=== PATIENT | female | born 1975 | race Caucasian/White ===

== ENCOUNTER 2017-03-06 16:19 | Emergency (ER) | payer BC, SELFPAY | END 2017-03-06 17:34 | disposition home or self-care (01) | PROVIDERS: Emergency Provider Nurse Practitioner Family; Family Provider Family Medicine; Visit Provider Nurse Practitioner Family | DX: J10.1 Influenza due to other identified influenza virus with other respiratory manifestations (principal); F17.210 Nicotine dependence, cigarettes, uncomplicated; Z87.442 Personal history of urinary calculi; Z88.5 Allergy status to narcotic agent; Z88.0 Allergy status to penicillin; Z88.2 Allergy status to sulfonamides; Z88.8 Allergy status to other drugs, medicaments and biological substances | CPT/HCPCS: 87804; 87880; 99201 ==

== ENCOUNTER 2017-03-08 10:14 | Outpatient (CLI) | payer BC, SELFPAY | END 2017-03-08 12:45 | disposition home or self-care (01) | PROVIDERS: Family Provider Family Medicine; Visit Provider Nurse Practitioner | DX: J11.1 Influenza due to unidentified influenza virus with other respiratory manifestations (principal); R50.9 Fever, unspecified; R05 Cough | CPT/HCPCS: 96360 ==

== ENCOUNTER → 2017-09-15 09:55 | Outpatient (CLI) | payer BC, SELFPAY ==
--- NOTE | 2017-09-15 10:07 | MM_ITS ---
MM Dig screening mamm BI w/CAD CAD Screening COMPARISON: None, this is baseline INDICATION: There is no personal or family history of breast cancer. 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 For symmetrical appearance. TECHNIQUE: Standard CC and MLO images were obtained. R2 CAD reviewed. FINDINGS: Prominent diffuse heterogenic fibroglandular densities are seen in both breasts. A small implant is seen deep within the right breast which shows no evidence of leakage. Or significant deformity. There is no suspicious lesion in either breast and there are no suspicious microcalcifications. IMPRESSION: Moderately and diffusely dense parenchymal pattern with no suspicious lesion seen BI-RADS Category: 2 Benign Finding(s) RECOMMENDED FOLLOW-UP: 1YR - 1 YEAR FOLLOW-UP (A letter has been sent to the patient regarding results of the study.)
[2017-09-15 10:16] LABS: Basophils % 0.6 % (0.1-2.0); Eosinophils # 0.1 K/mm3 (0.0-0.4); Eosinophils % 2.5 % (0.1-12.0); Hematocrit 45.7 % (37.0-47.0); Hemoglobin 14.8 g/dL (12.2-16.2); Lymphocytes # 1.9 K/mm3 (0.7-4.5); Lymphocytes % 34.3 K/mm3 (10-50); Mean Corpuscular HGB Conc 32.3 g/dL (31.8-35.4); Mean Corpuscular Hemoglobin 29.2 pg (27.0-31.2); Mean Corpuscular Volume 90.4 fl (81-99); Mean Platelet Volume 7.1 fl (7.4-10.4); Monocytes # 0.4 K/mm3 (0.1-1.0); Monocytes % 7.5 % (1.7-9.3); Neutrophils # 3.1 K/mm3 (1.8-7.8); Platelet Count 309 K/mm3 (142-424); Red Blood Count 5.06 M/mm3 (4.20-5.40); White Blood Count 5.6 K/mm3 (4.8-10.8)
[2017-09-15 11:35] LABS: Alanine Aminotransferase 16 U/L (12-78); Albumin/Globulin Ratio 1.2 (1.1-1.8); Alkaline Phosphatase 59 U/L (46-116); Anion Gap 12.3 mEq/L (5-15); Aspartate Amino Transferase 13 U/L (15-37); Bilirubin,Total 1.3 mg/dL (0.2-1.0); Blood Urea Nitrogen 13 mg/dL (7-18); Calcium 8.9 mg/dL (8.5-10.1); Carbon Dioxide 27 mmol/L (21.0-32.0); Chloride 106 mmol/L (98-107); Chol/HDL Ratio 2.3 (1-3.5); Cholesterol 167 mg/dL (140-200); Creatinine,Serum 0.57 mg/dL (0.55-1.02); Estimated Glomerular Filt Rate 117 ml/min (>60); GFR (African American) 142 ML/MIN (>60); Globulin 3.3 gm/dl (1.3-3.2); Glucose 94 mg/dL (74-106); HDL Cholesterol 72 mg/dL (29-89); LDL Cholesterol 88 mg/dL (0-130); Potassium 4.3 mmoL/L (3.5-5.1); Sodium 141 mmol/L (136-145); Total Protein,Serum 7.3 gm/dL (6.4-8.2); Triglycerides 33 mg/dL (30-200); VLDL Cholesterol 7 mg/dL (0-40)
== END ==
PROVIDERS: Family Provider Family Medicine; PCP Nurse Practitioner Family; Visit Provider Nurse Practitioner Obstetrics & Gynecology
DX: Z12.31 Encounter for screening mammogram for malignant neoplasm of breast (principal); Z01.419 Encounter for gynecological examination (general) (routine) without abnormal findings
CPT/HCPCS: 36415; 77067; 80053; 80061; 85025

== ENCOUNTER → 2018-10-18 15:51 | Outpatient (CLI) | payer BC, SELFPAY ==
--- NOTE | 2018-10-18 15:56 | XR_ITS ---
XR chest 2V HISTORY: ITS.REASON: COUGH, HX OF PNEUMONIA ORDERING PHYSICIAN: Aurea Danielson APRN PATIENT AGE: 42 years COMPARISON: None FINDINGS: The cardiomediastinal silhouette and pulmonary vascularity are within normal limits. The lungs are clear without infiltrates, suspicious nodules, or pleural effusions. Mild thoracic scoliosis convex right. Old granulomatous disease. There is some minimal pleural thickening in the right upper chest laterally nonspecific. Right breast implant noted IMPRESSION: No acute finding Minimal pleural thickening right upper chest laterally nonspecific. Stability may be confirmed with follow-up
--- NOTE | 2018-10-18 15:57 | XR_ITS ---
XR shoulder RT min 2V HISTORY: ITS.REASON: SHOULDER PAIN, NO INJURY ORDERING PHYSICIAN: Aurea Danielson APRN PATIENT AGE: 42 years Comparison: None FINDINGS: No fracture or dislocation. No lytic or blastic change. There is normal mineralization. The joint spaces are well-preserved. No significant degenerative/arthritic changes. No erosive changes evident. There is some mild pleural thickening in the right upper lung zone laterally with questionable old right third rib fracture. IMPRESSION: No acute finding. Suspect old right third rib fracture with mild pleural thickening
== END ==
PROVIDERS: PCP Nurse Practitioner; Visit Provider Nurse Practitioner Family
DX: R05 Cough (principal)
CPT/HCPCS: 71046; 73030

== ENCOUNTER → 2019-10-09 09:41 | Outpatient (CLI) | payer BC, SELFPAY ==
--- NOTE | 2019-10-09 10:12 | US_ITS ---
PROCEDURE: US THYROID CLINICAL INDICATION: THYROID NODULE FOLLOW UP Follow-up nodule COMPARISON: 11/13/2015 FINDINGS: Right lobe: 3.9 x 1.6 x 2.1 cm. 7 x 3 mm stable solid nodule upper pole, stable 1.8 x 1.4 cm solid nodule with lobularity anteriorly and a cystic component laterally. 5 mm solid-appearing nodule lower pole Left lobe: 4.4 x 1.4 x 1.2 cm. 5 mm solid-appearing nodule upper pole stable. 5 mm cystic nodule mid polar region. 7 mm cystic nodule mid polar region Isthmus: Unremarkable Additional findings: IMPRESSION: Overall no change in the multiple thyroid nodules and cysts Dictated by: Vishnu Stark MD 10/09/2019 15:11 Electronically signed by Vishnu Stark MD in [place] 10/09/2019 15:11
== END ==
LOC: RAD 09:42
PROVIDERS: PCP Family Medicine; Visit Provider Nurse Practitioner
DX: E04.2 Nontoxic multinodular goiter (principal); R53.82 Chronic fatigue, unspecified
CPT/HCPCS: 76536

== ENCOUNTER 2020-02-22 12:08 | Emergency (ER) | payer BC, SELFPAY ==
[2020-02-22 12:30] VITALS: BP 115/52; PULSE 84; RESP 21; TEMP 37.1; O2SAT 99; BMI 22.3
--- NOTE | 2020-02-22 12:46 | HMH.EDUTC ---
[facility] Disposition Clinical Impression: UTI (urinary tract infection) Qualifiers: Urinary tract infection type: acute cystitis Hematuria presence: with hematuria Qualified Code(s): N30.01 - Acute cystitis with hematuria Disposition: Home, Self-Care Condition on Discharge: Good Instructions: DI for Urinary Tract Infection (UTI) Additional Instructions: retrun if symptoms worsen follow up with pcp for culture result Referrals: Thelma Pace APRN [Primary Care Provider] - Time of Disposition: 12:54 Medical Decision Making - Alex Inquiry Pt receiving controlled substance: No Vital Signs: 02/22/20 12:30 Temperature 98.7 F Temperature Source Oral Pulse Rate [Right Brachial] 84 Respiratory Rate 21 Blood Pressure [Right Arm] 115/52 L Blood Pressure Mean [Right Arm] 73 Blood Pressure Source [Right Arm] Automatic Cuff Blood Pressure Position [Right Arm] Sitting 02 Sat by Pulse Oximetry 99 Oxygen Delivery Method Room Air [facility] HPI - General Chief complaint: Urgent Treatment Center Stated complaint: possible UTI Time Seen by Provider: 02/22/20 12:46 Mode of Arrival: Ambulatory Source of Information: Patient Limitations: No Limitations Description of Symptoms (Recalled from Triage Doc. by RN): PATIENT C/O BURING WITH URINATION X 2 DAYS HEENT Symptoms (Recalled from RN notes): No Resp Symptoms (Recalled from RN notes): No Skin Symptoms (Recalled from RN notes): No MS Symptoms (Recalled from RN notes): No Functional Status (Recalled from RN notes): WNL - History of Present Illness Provider Complaint: 44 yr old female presents for burning and freq that started yesterday. pt states only antibiotic that helps is microbid. - Related Data Home Medications Medication Instructions Recorded Confirmed Citalopram Hydrobromide 40 mg PO DAILY 04/03/18 04/06/18 [Citalopram 40mg Tablet] Rizatriptan Benzoate [Maxalt] 10 mg PO DAILY PRN 04/03/18 04/06/18 Previous Rx's Medication Instructions Recorded Azithromycin [Z-Mark 250mg Tab*] 250 mg PO UD DOSE PK #6 tab 04/03/18 fluconazole 150 mg tablet 150 mg PO Q3D 0 Days #14 tab 11/23/18 Allergies Allergy/AdvReac Type Severity Reaction Status Date / Time acetaminophen [ACETAMINOPHEN] Allergy Unknown Verified 04/06/18 10:27 oxycodone [OXYCODONE] Allergy Unknown Verified 04/06/18 10:27 penicillin V [PENICILLIN V] Allergy Unknown Verified 04/06/18 10:27 Penicillins [PENICILLINS] Allergy Unknown Verified 04/06/18 10:27 Sulfa (Sulfonamide Allergy Unknown Verified 04/06/18 10:27 Antibiotics) [SULFA (SULFONAMIDE ANTIBIOTICS)] sulfamethoxazole Allergy Unknown Verified 04/06/18 10:27 [SULFAMETHOXAZOLE] trimethoprim [TRIMETHOPRIM] Allergy Unknown Verified 04/06/18 10:27 - Worker's Comp Is this a Worker's Comp case?: No [facility] History - Hepatitis A Screen Drug use history?: No High risk sexual behaviors?: No History of sexually transmitted infection?: No Currently employed?: No Childcare worker?: No Do you have indoor plumbing?: Yes Do you have electricity?: Yes Attestation statement:: This patient has been screened for Hepatitis A risk factors. I have reviewed the patient's past medical history: Yes Medical History: Reports:: Kidney Stones, Migraine Denies:: Cancer, Diabetes Mellitus Type 1, Diabetes Mellitus Type 2, MRSA Other Medical History: Reports: Other Comment: scoliosis- moderate to severe Other Surgeries: Yes: Tubal Ligation Amputation: No Fractures: No Comment: (Rt) Breast Implant 1996. Kidney Stone 2003 - Social History Smoking Status: Never smoker Alcohol Intake: never Alcohol Intake Frequency:: holidays/special occasions only Substance Use Type: denies use Occupational Status: other Family Hx:: Hypertension Comment: Arthritis BAKER PASTRY history: Spontaneous ROS Obtained: Yes Systems reviewed as appropriate & no additional complaints - Constitutional Constitutional: Reports system reviewed and
[2020-02-22 12:48] LABS: Apearance,Urine Clear (Clear); Color,Urine Yellow (Yellow); Glucose,Urine (UA) Negative (Negative); Ketones,Urine Negative (Negative); Protein,Urine Negative (Negative); Specific Gravity, Urine 1.015 (1.005-1.030)
[2020-02-22 12:49] LABS: Bilirubin,Urine Negative (Negative); Blood, Urine Trace (Negative); UTC Leukocyte Esterase,Urine Trace (Negative); UTC Nitrate,Urine Negative (Negative); Urobilinogen,Urine 0.2 EU/dl (0.2)
[2020-02-22 13:01] VITALS: BP 115/52; PULSE 4; RESP 21; TEMP 37.1; O2SAT 99
== END 2020-02-22 13:04 | disposition home or self-care (01) ==
PROVIDERS: Emergency Provider Nurse Practitioner Family; PCP Nurse Practitioner
DX: N30.01 Acute cystitis with hematuria (principal); Z87.442 Personal history of urinary calculi; Z88.0 Allergy status to penicillin; Z88.2 Allergy status to sulfonamides
CPT/HCPCS: 81003; 87086; 87088; 87186; 99201

== ENCOUNTER 2021-03-21 11:57 | Emergency (ER) | payer BC, SELFPAY ==
[2021-03-21 13:50] VITALS: BP 0/0; PULSE 0; RESP 0; TEMP -17.7; TEMP 0
== END 2021-03-21 13:51 | disposition left against medical advice (07) ==
LOC: UTC 11:59
PROVIDERS: Emergency Provider Nurse Practitioner Family; PCP Family Medicine
DX: Z53.21 Procedure and treatment not carried out due to patient leaving prior to being seen by health care provider (principal)

== ENCOUNTER → 2021-03-21 12:16 | Outpatient (CLI) | payer BC, SELFPAY | PROVIDERS: Visit Provider Nurse Practitioner Family | DX: N39.0 Urinary tract infection, site not specified (principal) ==

== ENCOUNTER → 2021-03-29 10:46 | Outpatient (CLI) | payer BC, SELFPAY ==
--- NOTE | 2021-03-29 10:51 | XR_ITS ---
FINAL REPORT CLINICAL HISTORY: RT FLANK PAIN,RENAL CALCULUS FINDINGS: SINGLE VIEW ABDOMEN A single view of the abdomen was obtained. There is a nonobstructive bowel gas pattern. There are no abnormally dilated loops of small bowel. Moderate stool seen throughout the colon. There are postoperative changes noted of the pelvis. No abnormal calcifications are identified. There is levoscoliosis. IMPRESSION: Nonobstructive bowel gas pattern. No definite renal stone. Reviewed, Interpreted and Dictated by Martín Lan III, MD Transcribed by Anju Boles Authenticated by Martín Lan III, MD on 03/29/2021 01:23:53 PM [facility]
[2021-03-29 11:52] LABS: Basophils # 0.1 K/mm3 (0-0.2); Basophils % 1.3 % (0.1-2.0); Eosinophils # 0.2 K/mm3 (0.0-0.4); Eosinophils % 2.2 % (0.1-12.0); Hematocrit 45.7 % (37.0-47.0); Hemoglobin 14.3 g/dL (12.2-16.2); Lymphocytes # 2.1 K/mm3 (0.7-4.5); Mean Corpuscular HGB Conc 31.3 g/dL (31.8-35.4); Mean Corpuscular Hemoglobin 30.2 pg (27.0-31.2); Mean Corpuscular Volume 96.3 fl (81-99); Mean Platelet Volume 7.6 fl (7.4-10.4); Monocytes # 0.5 K/mm3 (0.1-1.0); Monocytes % 6.9 % (1.7-9.3); Neutrophils # 4.6 K/mm3 (1.8-7.8); Neutrophils % 61.7 % (37.0-80.0); Platelet Count 453 K/mm3 (142-424); Red Blood Count 4.75 M/mm3 (4.20-5.40); Red Cell Distribution Width 12.7 % (11.5-17.5); White Blood Count 7.4 K/mm3 (4.8-10.8)
[2021-03-29 12:01] LABS: Alanine Aminotransferase 14 U/L (12-78); Albumin Level 4.5 g/dl (3.5-5.0); Albumin/Globulin Ratio 1.6 (1.1-1.8); Alkaline Phosphatase 72 U/L (38-126); Anion Gap 10.9 mEq/L (5-15); Aspartate Amino Transferase 26 U/L (14-36); Bilirubin,Total 1.3 mg/dl (0.2-1.3); Blood Urea Nitrogen 11 mg/dl (7-17); Calcium 9.1 mg/dl (8.4-10.2); Carbon Dioxide 29 mmol/L (22.0-30.0); Chloride 104 mmol/L (98-107); Estimated Glomerular Filt Rate 134 ml/min (>60); GFR (African American) 162 ML/MIN (>60); Globulin 2.9 g/dL (1.3-3.2); Glucose 88 mg/dl (74-100); Potassium 3.9 mmoL/L (3.5-5.1); Sodium 140 mmol/L (136-145); Total Protein,Serum 7.4 g/dl (6.3-8.2)
== END ==
LOC: RAD 10:48
PROVIDERS: PCP Nurse Practitioner Family; Visit Provider Nurse Practitioner Family
DX: R10.9 Unspecified abdominal pain (principal); N20.0 Calculus of kidney
CPT/HCPCS: 36415; 74018; 80053; 85025

== ENCOUNTER → 2021-03-30 08:20 | Outpatient (CLI) | payer BC, SELFPAY ==
--- NOTE | 2021-03-30 08:29 | CT_ITS ---
FINAL REPORT TECHNIQUE: Axial images through the abdomen and pelvis were performed without contrast.This study was performed with techniques to keep radiation doses as low as reasonably achievable, (ALARA). Individualized dose reduction techniques using automated exposure control or adjustment of mA and/or kV according to the patient's size were employed. CLINICAL HISTORY: RT FLANK PAIN,RENAL CALCULUS,DECREASED URINE OUTPUT FINDINGS: ABDOMEN: The lung bases are clear. The heart size is normal. There is a probable cyst in the liver dome. Limited images of the liver are otherwise unremarkable. The spleen is normal. No adrenal mass is identified. The aorta is normal in caliber. There is no significant free fluid or adenopathy. There is a less than 3 mm nonobstructing stone in the lower pole of the left kidney. There is no left hydronephrosis. There is mild right hydroureter secondary to a 2 mm right UVJ stone. PELVIS: The appendix is normal. Uterus is mildly enlarged which may represent fibroids. The urinary bladder is unremarkable. There is no significant free fluid or adenopathy. IMPRESSION: Mild right hydroureter secondary to a 2 mm right UVJ stone. Nonobstructing left renal stone. Mild uterine enlargement which may represent fibroids. Reviewed, Interpreted and Dictated by Martín Lan III, MD Transcribed by Anju Boles Authenticated by Martín Lan III, MD on 03/30/2021 12:54:50 PM [facility]
== END ==
LOC: RAD 08:25
PROVIDERS: PCP Nurse Practitioner Family; Visit Provider Nurse Practitioner Family
DX: R10.9 Unspecified abdominal pain (principal); N20.0 Calculus of kidney; R34 Anuria and oliguria
CPT/HCPCS: 74176

== ENCOUNTER → 2021-04-05 14:11 | Outpatient (CLI) | payer BC, SELFPAY ==
--- NOTE | 2021-04-05 14:16 | XR_ITS ---
FINAL REPORT CLINICAL HISTORY: kidney stone COMPARISON: CT dated March 30, 2021 FINDINGS: There is a nonobstructive bowel gas pattern. There are no abnormally dilated loops of small bowel. There is a moderate amount of retained stool. The distal right ureteral stone seen on recent CT is not identified. Postoperative changes are seen in the pelvis. There is levoscoliosis. IMPRESSION: Moderate retained stool. Prior distal right ureteral stone not identified. Reviewed, Interpreted and Dictated by Martín Lan III, MD Transcribed by Jewel Blackburn Authenticated by Martín Lan III, MD on 04/05/2021 03:10:[address] [facility]
== END ==
LOC: RAD 14:12
PROVIDERS: PCP Nurse Practitioner Family; Visit Provider Urology
DX: N20.0 Calculus of kidney (principal)
CPT/HCPCS: 74018

== ENCOUNTER 2022-01-10 16:15 | Emergency (ER) | payer BC, SELFPAY ==
[2022-01-10] VITALS (8 sets, daily range): BP systolic 114–138; BP diastolic 55–88; PULSE 82–90; RESP 12–18; TEMP 36.6–36.9; O2SAT 98–100; BMI 24.7
--- NOTE | 2022-01-10 16:37 | ECG_ITS ---
APPROVED REPORT Exam: Resting ECG HR:80 bpm ECG Measurements Heart Rate 80 AXES HI 155 P 52 QRSd 92 QRS 21 QT 369 T 32 QTc 405 Conclusion SINUS RHYTHM POSSIBLE RIGHT VENTRICULAR CONDUCTION DELAY [RSR (QR) IN V1/V2] BORDERLINE ECG UNCONFIRMED REPORT Electronically signed by : Eric Bunch MD 01/11/2022 20:03:46
--- NOTE | 2022-01-10 17:02 | XR_ITS ---
PROCEDURE INFORMATION: Exam: XR Chest Exam date and time: 01/10/2022 5:01 PM Age: 46 years old Clinical indication: Other: Palpitations TECHNIQUE: Imaging protocol: Radiologic exam of the chest. Views: 2 views. COMPARISON: CR XR KUB 04/05/2021 2:18 PM FINDINGS: Lungs: No acute pulmonary findings. No pulmonary consolidation. Lung volumes within normal limits. Pulmonary vessels do not appear congested. Pleural spaces: Unremarkable. No significant pleural effusion. No pneumothorax. Heart/Mediastinum: The cardiac silhouette is normal. Bones/joints: Thoracolumbar scoliosis. Mild disc narrowing and spondylosis. No acute appearing fracture or high-grade listhesis, as visualized. IMPRESSION: 1. No acute cardiopulmonary findings. 2. Thoracolumbar scoliosis.
[2022-01-10 17:14] LABS: Basophils % 0.6 % (0.1-2.0); Eosinophils # 0.1 K/mm3 (0.0-0.4); Eosinophils % 1.8 % (0.1-12.0); Hematocrit 41.5 % (37.0-47.0); Hemoglobin 12.9 g/dL (12.2-16.2); Lymphocytes # 2.1 K/mm3 (0.7-4.5); Lymphocytes % 31.8 % (10-50); Mean Corpuscular HGB Conc 31.1 g/dL (31.8-35.4); Mean Corpuscular Hemoglobin 29.3 pg (27.0-31.2); Mean Corpuscular Volume 94.5 fl (81-99); Mean Platelet Volume 7.3 fl (7.4-10.4); Monocytes # 0.5 K/mm3 (0.1-1.0); Monocytes % 7.8 % (1.7-9.3); Neutrophils # 3.9 K/mm3 (1.8-7.8); Platelet Count 387 K/mm3 (142-424); Red Cell Distribution Width 12.1 % (11.5-17.5); White Blood Count 6.7 K/mm3 (4.8-10.8)
[2022-01-10 17:16] LABS: Chloride 103 mmol/L (98-107)
[2022-01-10 17:17] LABS: Potassium 3.6 mmoL/L (3.5-5.1); Sodium 139 mmol/L (136-145)
[2022-01-10 17:19] LABS: Blood Urea Nitrogen 9 mg/dl (7-17); Creatinine Clearance Estimated 137 mL/min (50-200); Estimated Glomerular Filt Rate 133 ml/min (>60); GFR (African American) 161 ML/MIN (>60)
[2022-01-10 17:20] LABS: Anion Gap 12.6 mEq/L (5-15); Calcium 8.6 mg/dl (8.4-10.2); Carbon Dioxide 27 mmol/L (22.0-30.0); Glucose 80 mg/dl (74-100)
[2022-01-10 17:38] LABS: T4 (Thyroxine) 8.1 ug/dl (5.53-11.0)
[2022-01-10 17:45] LABS: Troponin I < 0.01 ng/ml (0.00-0.034)
[2022-01-10 17:51] LABS: Thyroid Stimulating Hormone 0.74 uIU/mL (0.465-4.68)
--- NOTE | 2022-01-10 18:21 | PC.NURSE ---
Rounded on pt at this time. PT had no new needs and updated her on POC
--- NOTE | 2022-01-10 19:08 | PC.NURSE ---
Dr Cintron in to see pt.
--- NOTE | 2022-01-10 19:16 | HMH.EDGENADL ---
Discharge Plan Disposition Patient Disposition: Home, Self-Care Condition: Good Prescriptions Prescriptions: No Action phenazopyridine [Pyridium] 200 mg tablet 200 mg PO TID PRN (Reason: pain) 0 Days Qty: 6 0RF nitrofurantoin monohyd/m-cryst [Macrobid] 100 mg capsule 100 mg PO Q12H 7 Days Qty: 14 0RF Rx Instructions: must administer with a meal/food fluconazole 150 mg tablet 150 mg PO Q3D 0 Days Qty: 2 0RF phenazopyridine 200 MG tablet 200 pow PO TID Qty: 6 0RF ciprofloxacin HCl 500 MG tablet 500 mg PO BID 7 Days Qty: 14 0RF citalopram 40 MG tablet 40 mg PO DAILY Referrals Follow up/Referrals: Antelmo Bonilla MD [Primary Care Provider] - See instructions Raúl Cotter MD [Staff Physician] - See instructions (palpitations, wearing holter) Activity Restrictions/Add. Instructions Additional Instructions/Restrictions: You have been evaluated for palpitations. EKG and lab work today looks reassuring. There is no clear cause that we have identified. Please follow-up with your primary care doctor. You may benefit from wearing a cardiac event monitor, Holter monitor. You may also benefit from an ultrasound of the heart, called an echocardiogram. Try to monitor your symptoms closely, keep a journal of sleep, diet, caffeine use. Return to the emergency department at once for any new or worsening symptoms, chest pain, syncope, difficulty breathing or other concerns Clinical Impressions Clinical Impression: Palpitations Instructions Patient Instructions: DI for Palpitations Discharge ED Provider: Yue Cintron Adult HPI General Chief complaint: Arrhythmia/Palpitations Stated complaint: IRREGULAR HEART BEAT SENT FR [facility] OFFICE Time Seen by Provider: 01/10/22 19:07 Mode of Arrival: Ambulatory Source of Information: Patient Limitations: No Limitations Description of Symptoms (Recalled from ER Triage Doc. by RN): Pt c/o palpitations x2 days that are worse at night accompanied by a burning in her chest. Pt sent for eval in ED from PCP office History of Present Illness HPI narrative: 46-year-old female presenting to the emergency department with palpitations. Symptoms started 2 days ago. She will have episodes of feeling like her heart is beating fast and strong. Occasionally feels like it skipping beats. She feels them mostly at nighttime. They happen at least once a minute. Sometimes wake her up. No chest pain. No shortness of breath. No nausea, vomiting, diaphoresis. She has never had symptoms like this before. She does have thyroid nodules, no diagnosis of hyperthyroidism. She is otherwise quite healthy. Denies any changes in sleep, diet, exercise, caffeine use. No recent illness. She had COVID about 1 year ago. She has never had an echocardiogram or worn a Holter monitor. No syncope. Related Data Home Medications Medication Instructions Recorded Confirmed citalopram 40 mg tablet 40 mg PO DAILY Anxiety 02/22/20 04/05/21 Previous Rx's Medication Instructions Recorded fluconazole 150 mg tablet 150 mg PO Q3D prophylaxis while on 03/16/21 abtx 2 doses #2 tabs nitrofurantoin 100 mg PO Q12H 7 days #14 caps 03/16/21 monohydrate/macrocrystals 100 mg capsule (Macrobid) phenazopyridine 200 mg tablet 200 mg PO TID PRN pain 6 doses #6 03/16/21 (Pyridium) tabs ciprofloxacin HCl 500 mg tablet 500 mg PO BID 7 days #14 tabs 03/21/21 phenazopyridine 200 mg tablet 200 pow PO TID #6 tabs 03/21/21 Allergies Allergy/AdvReac Type Severity Reaction Status Date / Time Sulfa (Sulfonamide Allergy Severe Vomiting Verified 04/05/21 13:53 Antibiotics) [SULFA (SULFONAMIDE ANTIBIOTICS)] Penicillins [PENICILLINS] Allergy Unknown Verified 04/05/21 13:53 PFSH PFSH Social History Smoking Status: Never smoker alcohol intake: current substance use type: denies use current occupational status: other Travel in the last 8 weeks: None hous
== END 2022-01-10 20:12 | disposition home or self-care (01) ==
PROVIDERS: Emergency Medicine; Emergency Provider Emergency Medicine; PCP Family Medicine
DX: R00.2 Palpitations (principal); R07.9 Chest pain, unspecified; I49.9 Cardiac arrhythmia, unspecified; E04.1 Nontoxic single thyroid nodule; M41.9 Scoliosis, unspecified; Z88.0 Allergy status to penicillin; Z88.2 Allergy status to sulfonamides
CPT/HCPCS: 71046; 80048; 84436; 84443; 84484; 85025; 93005; 93225; 93226; 99284

== ENCOUNTER → 2022-01-20 13:25 | Outpatient (CLI) | payer BC, SELFPAY ==
--- NOTE | 2022-01-20 | CA_ITS ---
APPROVED REPORT Exam: Exercise Treadmill Technologist: Hanna Rich, Ht: 5 ft 4 in Wt: 138 lbs BSA: 1.67 m2 HR: 82 bpm BP: 151/68 mmHg Rhythm: NSR, normal Medical History Medications: RIZATRIPTAN,,,,, Stress Test Details Test: Bud HR Resting HR: 102 bpm Max Heart Rate (APMHR): 175.995350 bpm Max HR Achieved: 189 bpm Target HR (85% APMHR): 148.905301 bpm % of APMHR: 108.00 Recovery HR: 146 bpm BP Resting BP: 106/67 mmHg Max BP: 154/70 mmHg Recovery BP: 111.0/65.0 mmHg ECG Resting ECG: NSR, normal Clinical Exercise duration: 09:28 min Highest Stage Achieved: Exercise capacity: 10.1 METs Stress ECG Conclusion During stress echo pt exercised total of 9:28. No CP during exercise. Mild burning CP in recovery. Occasional isolated PVC. Allowing for motion artifact, the ST response to exercise is within normal. Normal GXT with occasional PVC. Echo images reported separately. Test Summary Stage 3 02:00 14.0 3.4 176 . . . . REST . . . . . . . Standing REST 12:31 0.0 0.0 102 . 106/ 67 . . Stage 1 01:00 10.0 1.7 125 . . . . Stage 1 02:00 10.0 1.7 122 . . . . Stage 1 03:00 10.0 1.7 127 . 132/ 70 . . Stage 2 01:00 12.0 2.5 140 . . . . Stage 2 02:00 12.0 2.5 146 . . . . Stage 2 03:00 12.0 2.5 156 . 154/ 70 . . Stage 3 01:00 14.0 3.4 168 . . . . Stage 3 02:00 14.0 3.4 176 . . . . Stage 3 03:00 14.0 3.4 179 . . . . Stage 4 00:28 16.0 4.2 188 . . . Stop exercise at 09:28 RECOVERY 01:00 0.0 0.0 146 . . . . RECOVERY 02:00 0.0 0.0 124 . . . . RECOVERY 03:00 0.0 0.0 121 . . . . RECOVERY 04:00 0.0 0.0 117 . 111/ 65 . . RECOVERY 05:00 0.0 0.0 108 . 126/ 64 . . RECOVERY 06:00 0.0 0.0 107 . 126/ 64 . . RECOVERY 06:32 0.0 0.0 110 . 126/ 64 . . Electronically signed by : Edil Park MD 01/21/2022 10:59:21
--- NOTE | 2022-01-20 13:26 | CA_ITS ---
APPROVED REPORT EXAM: Comprehensive 2D, Doppler, and color-flow Echocardiogram Security Investigator: Tahira Perkins RT(R) Ht: 5 ft 4 in Wt: 133lbs BSA: 1.64 BP: 151/68 mmHg Indications: palpitations Stress Test Details HR Max Heart Rate (APMHR): 175.989817 bpm Target HR (85% APMHR): 148.204183 bpm BP ECG Conclusion 1. Patient exercised on Bud protocol, achieved 10.1 METs of workload on treadmill, there was no exercise-induced chest discomfort. The EKG was negative for ischemia. 2. Resting echocardiogram showed normal left ventricular size and function with no regional wall motion abnormality, with exercise there is increase in contractility of all the segments of the myocardium with hyperdynamic left ventricular systolic response, no obvious wall motion abnormality with exercise to suggest underlying ischemic heart disease. 3. Normal exercise stress echo. Electronically signed by : Edil Park MD 01/21/2022 11:01:36
--- NOTE | 2022-01-20 13:26 | CA_ITS ---
APPROVED REPORT EXAM: Comprehensive 2D, Doppler, and color-flow Echocardiogram Generating Plant Superintendent: Sri Barlow CRT Ht: 5 ft 4 in Wt: 138lbs BSA: 1.67 BP: 124/57 mmHg Indications: CP, Palpitations 2D Dimensions LVOT 1.96 cm (M/F) 1.5-2.5 LA Volume 18.60 mL LA Volume Index 10.90 mL/m2 (M/F) 16-34 M-Mode Dimensions RVDd 1.97 cm (0.9-2.6) LA Diam 2.59 cm (1.9-4.0) LVDd 4.48 cm (3.5-5.7) Ao Diam 3.19 cm (2.0-3.7) LVDs 2.79 cm (3.5-5.7) IVSd 0.97 cm (0.6-1.1) PWd 0.59 cm (0.6-1.1) EF (Teich) 68.00% FS 37.70% EDV (Teich) 91.50 mL TAPSE 2.30 (<1.7) ESV (Teich) 29.30 mL LV Diastology E Decel Time 213.00 (160-240 msec) E/A Ratio 1.25 MED E' 14.60 (< 7 cm/sec) MED A' 14.80 cm/s E'/MED E' Ratio 5.14 (>14) LAT E' 12.60 (<10 cm/sec) LAT A' 15.00 cm/s E/LAT E' Ratio 5.96 (>14) Aortic Valve AI PHT 442.00 ms AO Peak GR. 7.50 mmHg Mitral Valve MV A Velocity 60.00 (40-130 cm/s) E/A Ratio 1.25 MV Decel. Time 213.00 (160-240 ms) Pulmonary Valve PV Peak Velocity 179.00 (50-150 cm/s) Tricuspid Valve TR P. Velocity 246.00 cm/s RAP Estimate 10.00 mmHg RVSP 34.30 mmHg Left Ventricle Left atrium is normal size, left ventricle is normal size, there is no concentric left ventricular hypertrophy, estimated ejection fraction 55% with no regional wall motion abnormality, diastolic parameters are within normal range. Right Ventricle Right atrium and right ventricle are normal. Contractility. Aortic Valve Aortic valve morphology is not well visualized, there is no aortic stenosis, there is trace aortic insufficiency, possibility of the bicuspid aortic valve cannot be excluded Mitral Valve Mitral valve is grossly normal, there is trace mitral regurgitation. Tricuspid Valve Tricuspid valve grossly normal, there is trace tricuspid regurgitation, tricuspid regurgitation jet velocity is inadequate for calculation of the right ventricular systolic pressure. Pulmonic Valve Pulmonic valve is poorly visualized. Great Vessels Aortic root is normal size. Inferior vena cava is normal size with normal inspiratory collapse. Pericardium No significant pericardial effusion noted. Conclusion 1. Normal left ventricular size, preserved left ventricular systolic function, estimated ejection fraction 55% with no regional wall motion abnormality, diastolic parameters are within normal range. 2. Aortic valve morphology is not well visualized, possibility of the bicuspid aortic valve cannot be excluded, there is no aortic stenosis, there is trace aortic insufficiency. 3. Trace mitral and tricuspid regurgitation. 4. No significant pericardial effusion noted. 5. Inferior vena cava normal size with normal inspiratory collapse. Electronically signed by : Edil Park MD 01/21/2022 11:06:51
== END ==
LOC: RT 13:26
PROVIDERS: PCP Family Medicine; Visit Provider Physician Assistant
DX: R00.2 Palpitations (principal)
CPT/HCPCS: 93017; 93306; 93350

== ENCOUNTER → 2023-02-20 15:36 | Outpatient (CLI) | payer BC, SELFPAY ==
--- NOTE | 2023-02-20 15:38 | MM_ITS ---
PROCEDURE INFORMATION: Exam: MG Bilateral Screening 3D Mammography Exam date and time: 02/20/2023 3:27 PM Age: 47 years old Clinical indication: Screening mammogram TECHNIQUE: Imaging protocol: Bilateral Screening tomosynthesis and 2D mammography including computer-aided detection (CAD) when performed. COMPARISON: MG SCBI MM Dig screening mamm BI w/CAD 09/15/2017 10:22 AM FINDINGS: MAMMOGRAPHY: Breast composition: The breast is heterogeneously dense, which may obscure small masses. Mass: None. Architectural distortion: No new or suspicious architectural distortion. Calcifications: No new or suspicious calcifications are present Asymmetric density: No new or suspicious asymmetric density is present Skin thickening: None. Axillary adenopathy: None. Implants: Right subpectoral augmentation implant IMPRESSION: No mammographic evidence of malignancy. Recommend annual screening mammography unless otherwise clinically indicated. ASSESSMENT: BI-RADS category 1: Negative
== END ==
PROVIDERS: PCP Family Medicine; Visit Provider Nurse Practitioner Obstetrics & Gynecology
DX: Z12.31 Encounter for screening mammogram for malignant neoplasm of breast (principal)
CPT/HCPCS: 77063; 77067

== ENCOUNTER 2023-05-30 15:14 | Outpatient (POV) | payer BC, SELFPAY | END 2023-05-30 23:59 | disposition home or self-care (01) | LOC: SC 15:14 | PROVIDERS: PCP Family Medicine; Visit Provider Dermatology | DX: Z00.00 Encounter for general adult medical examination without abnormal findings (principal) ==

== ENCOUNTER 2024-08-30 14:18 | Outpatient (CLI) | payer BC, SELFPAY ==
--- NOTE | 2024-08-30 14:30 | MM_ITS ---
PROCEDURE INFORMATION: Exam: MG Bilateral Screening 3D Mammography Exam date and time: 08/30/2024 2:25 PM Age: 48 years old Clinical indication: Screening examination; TECHNIQUE: Imaging protocol: Bilateral Screening tomosynthesis and 2D mammography including computer-aided detection (CAD) when performed. COMPARISON: 1. MG MM DIG SCREENING MAMM BI W/CAD 02/20/2023 3:27 PM 2. MG SCBI MM Dig screening mamm BI w/CAD 09/15/2017 10:22 AM FINDINGS: MAMMOGRAPHY: Breast composition: The breasts are heterogeneously dense, which may obscure small masses. Mass: No suspicious masses. Architectural distortion: Questionable partially imaged area of architectural distortion/asymmetry noted in the extreme posterior upper right breast/axillary tail, only well seen on implant displaced MLO frame 15. Finding may represent summation artifact or postsurgical change. Calcifications: No suspicious calcifications. Asymmetric density: None. Skin thickening: None. Axillary adenopathy: None. Implants: Subpectoral saline right breast implant noted. IMPRESSION: 1. Recommend right breast spot compression MLO view, full field exaggerated CC lateral view, full field true lateral view and ultrasound for further evaluation of a questionable partially imaged area of architectural distortion/asymmetry in the extreme posterior upper right breast/axillary tail, only well seen on implant displaced MLO frame 15. Finding may represent summation artifact or postsurgical change. 2. No mammographic evidence of malignancy in the left breast. ASSESSMENT: BI-RADS Category 0: Incomplete- Need Additional Imaging Evaluation.
== END 2024-08-30 23:59 | disposition home or self-care (01) ==
LOC: RAD 14:19
PROVIDERS: PCP Family Medicine; Visit Provider Nurse Practitioner Obstetrics & Gynecology
DX: Z12.31 Encounter for screening mammogram for malignant neoplasm of breast (principal); R92.333 Mammographic heterogeneous density, bilateral breasts; R92.8 Other abnormal and inconclusive findings on diagnostic imaging of breast; Z98.82 Breast implant status
CPT/HCPCS: 77063; 77067

== ENCOUNTER 2024-09-17 13:43 | Outpatient (CLI) | payer BC, SELFPAY ==
--- NOTE | 2024-09-17 14:00 | MM_ITS ---
PROCEDURE INFORMATION: Exam: US Right Breast, Complete MG Right Diagnostic Breast Tomosynthesis Exam date and time: 09/17/2024 2:00 PM Age: 48 years old Clinical indication: Patient recalled on the basis of a screening mammogram for further evaluation; Right breast; architectural distortion/asymmetry TECHNIQUE: Imaging protocol: Complete ultrasound of all four quadrants of the right breast and the retroareolar regions, including ultrasound of the axilla when performed. Right Diagnostic tomosynthesis and 2D mammography including computer-aided detection (CAD) when performed. Unilateral or bilateral exam. COMPARISON: MG MM DX IMPLANT RT W/BIB 09/17/2024 1:57 PM FINDINGS: MAMMOGRAPHY: Breast composition: The breast is heterogeneously dense, which may obscure small masses Breast mammogram findings: Digital diagnostic spot compression views of the right breast and 90 degree lateral view of the right breast demonstrate normal overlapping fibroglandular and vascular structures without persistent mass or asymmetry identified. ULTRASOUND: Breast ultrasound findings: Sonographic images of the right breast including the retroareolar region, all 4 quadrants and the axilla do not demonstrate any solid or cystic masses. Curses were placed over normal fibroglandular structures highly upper-outer quadrant 8 cm from the nipple. No architectural distortion or acoustical shadowing. No skin thickening or axillary adenopathy. IMPRESSION: No mammographic or sonographic evidence of malignancy. Annual bilateral mammographic screening is recommended unless otherwise clinically indicated. ASSESSMENT: BI-RADS Category 1: Negative.
== END 2024-09-17 23:59 | disposition home or self-care (01) ==
LOC: RAD 13:43
PROVIDERS: PCP Family Medicine; Visit Provider Nurse Practitioner Obstetrics & Gynecology
DX: R92.8 Other abnormal and inconclusive findings on diagnostic imaging of breast (principal); R92.331 Mammographic heterogeneous density, right breast
CPT/HCPCS: 76641; 77061; 77065; G0279

== ENCOUNTER 2024-10-11 07:47 | Outpatient (CLI) | payer BC, SELFPAY ==
--- OUTSIDE RECORDS SUMMARY | 2024-10-11 07:50 | XMS_ITS | Clinical Summary ---
Author Organization [facility] Address [address] [place] [address] Care Team Providers Care Tire Retreader Name Role Phone Zander Bonilla MD Primary Care Provider [phone] Allergies Active Allergy Reactions Criticality Noted Date Comments Penicillins Rash Low 06/18/2018 Sulfa Antibiotics GI Intolerance 06/18/2018 Medications tretinoin microspheres (RETIN-A MICRO) 0.1 % gel 0 06/11/2018 Active rizatriptan (MAXALT) 10 MG tablet 0 06/15/2018 Active fluticasone (FLONASE) 50 MCG/ACT nasal spray 1 spray by Each Nare route 2 (Two) Times a Day. 0 06/06/2018 Active citalopram (CeleXA) 40 MG tablet 0 06/15/2018 Active Active Problems No known active problems Social History Tobacco Use Types Packs/Day Years Used Date Smoking Tobacco: Never Assessed Abuse Screen Answer Date Recorded Unsafe at Home or Work/School Not on file Feels Threatened by Someone? Not on file 01/2023 Does Anyone Keep You from Co ntacting Others or Doint Things Outside the Home? Not on file 12/28/2022 Physical Sign of Abuse Present Not on file 1 Housing Stability Answer Date Recorded Current Living Arrangements Not on file 12/18 Potentially Unsafe Housing Conditions Not on cain e 12/28/2022 Family and Community Support Answer Sánchez e Recorded Help with Day-to-Day Activities Not on file 12/28/2022 Lonely or Isolated Not on file 12/28/2022 Employment Answer Date Recorded Do you want help finding or keeping work or a wilfredo b? Not on file 12/28/2022 Disabilities Answer Date Recorded Concentrating, Remembering, or Making Decisions Difficulty Not on file 12/28/2022 Doing Errands Independently Difficulty Not on fi le 12/28/2022 Education Answer Date Recorded Help with school or training? Not on file Preferred Language Not on file 12/28/2022 Comments No Sex and Gender Information Value Date Recorded Sex Assigned at Not on file Legal Sex Female 3:06 PM EST Gender Identity Not on file Sexual Orientation Not on file Last Filed Vital Signs Vital Sign Reading Time Taken Comments Blood Pressure 110/78 06/18/2018 10:54 AM EDT Pulse 90 06/18/2018 10:54 AM EDT Temperature 36.6 C (97.8 F) 06/18/2018 10:54 AM EDT Respiratory Rate 12 06/18/2018 10:5 4 AM EDT Oxygen Saturation 98% 06/18/2018 10: 54 AM EDT Inhaled Oxygen Concentration - - Weight 60.2 kg (132 lb 12.8 oz) 019 10:54 AM EDT Height 162.6 cm (5' 4 ) 06/18/2018 10:5 4 AM EDT Body Mass Index 22.8 06/18/2018 10:54 AM EDT Plan of Treatment Health Maintenance Due Date Last Done Comments Annual Gynecologic Pelvic an d Breast Exam 1976 TDAP/TD VACCINES (1 - Tdap) 12/23/1995 MAMMOGRAM 2016 ANNUAL PHYSICAL 06/18/2018 HEPATITIS C SCREENING 06/18/2018 COLOGUARD 2021 COLON CANCER SCREENING 5 YEA R SIGMOIDOSCOPY 2021 COLONOSCOPY 2021 COL[address]ECTAL CANCER SCREENING 2021 CT COLONOGRAPHY 2021 FECAL OCCULT BLOOD TEST 2021 FIT Testing (1 year) 2021 COVID-19 Vaccine (2023-2 5 season) 2023 INFLUENZA VACCINE 12/18/2024 Pneumococcal Vaccine 0-49 Aged Out No longer eligible based on patient's age to complete this topic Insurance [employer] Care Teams Tire Retreader Relationship Specialty Start Date End Date Zander Bonilla MD [address] [place] [address] PCP - General Family Medicine 05/09/16
[2024-10-11 08:39] LABS: Hematocrit 37.7 % (37.0-47.0); Hemoglobin 12.3 g/dL (12.2-16.2); Immature Granulocytes % 0.4 %; Mean Corpuscular HGB Conc 32.6 g/dL (31.8-35.4); Mean Corpuscular Hemoglobin 29.2 pg (27.0-31.2); Mean Corpuscular Volume 89.5 fl (81-99); Nucleated Red Blood Cells % 0 %; Platelet Count 393 K/mm3 (142-424); Red Blood Count 4.21 M/mm3 (4.20-5.40); Red Cell Distribution Width-SD 42.6 fL; White Blood Count 5.3 K/mm3 (4.8-10.8)
[2024-10-11 09:04] LABS: Alanine Aminotransferase 10 U/L (12-78); Albumin Level 3.4 g/dl (3.5-5.0); Albumin/Globulin Ratio 1.2 (1.1-1.8); Alkaline Phosphatase 68 U/L (38-126); Anion Gap 10.4 mEq/L (5-15); Aspartate Amino Transferase 23 U/L (14-36); Bilirubin,Total 1.3 mg/dl (0.2-1.3); Blood Urea Nitrogen 14 mg/dl (7-17); Calcium 9.2 mg/dl (8.4-10.2); Carbon Dioxide 25 mmol/L (22.0-30.0); Chloride 107 mmol/L (98-107); Cholesterol 175 mg/dl (140-200); Creatinine,Serum 0.60 mg/dl (0.52-1.04); Estimated Glomerular Filt Rate 107 ml/min (>60); GFR (African American) 130 ML/MIN (>60); Globulin 2.9 g/dL (1.3-3.2); Glucose 86 mg/dl (74-100); HDL Cholesterol 73 mg/dl (40-60); Potassium 4.4 mmoL/L (3.5-5.1); Sodium 138 mmol/L (136-145); Total Protein,Serum 6.3 g/dl (6.3-8.2); Triglycerides 50 mg/dl (30-150)
[2024-10-11 09:21] LABS: 25-OH Vitamin D, Total 40.1 ng/mL (30-100)
[2024-10-11 09:23] LABS: Free Thyroxine Index 2.2 ug/dL (5.93-13.13); T4 (Thyroxine) 6.6 ug/dl (5.53-11.0); Triiodothryronine (T3) Uptake 33 % (23.5-40.5)
[2024-10-11 09:35] LABS: Hemoglobin A1C 4.5 % (4.0-6.0)
[2024-10-11 09:36] LABS: Thyroid Stimulating Hormone 0.35 uIU/mL (0.465-4.68)
[2024-10-11 09:56] LABS: Vitamin B12 319 pg/mL (239-931)
[2024-10-11 10:13] LABS: Folate 11.60 ng/mL
[2024-10-12 08:12] LABS: LH 6.9 mIU/mL (.)
[2024-10-12 09:12] LABS: FSH 2.1 mIU/mL (.)
== END 2024-10-11 23:59 | disposition home or self-care (01) ==
LOC: LAB 07:48
PROVIDERS: PCP Nurse Practitioner; Visit Provider Nurse Practitioner Obstetrics & Gynecology
DX: Z00.00 Encounter for general adult medical examination without abnormal findings (principal); N92.4 Excessive bleeding in the premenopausal period
CPT/HCPCS: 36415; 80053; 80061; 82306; 82607; 82746; 83001; 83002; 83036; 84436; 84443; 84479; 85025

== ENCOUNTER 2024-11-06 15:38 | Outpatient (CLI) | payer BC, SELFPAY ==
--- OUTSIDE RECORDS SUMMARY | 2024-11-06 15:41 | XMS_ITS | Clinical Summary ---
Author Organization [facility] Address [address] [place] [address] Care Team Providers Care Psychometrist Name Role Phone Zander Bonilla MD Primary Care Provider [phone] Allergies Active Allergy Reactions Criticality Noted Date [...] patient's age to complete this topic Insurance [employer] Care Teams Psychometrist Relationship Specialty Start Date End Date Zander Bonilla MD [address] [place] [address] PCP - General Family Medicine 05/09/16
--- NOTE | 2024-11-06 16:00 | US_ITS ---
PROCEDURE: US TRANSVAGINAL CLINICAL INDICATION: Heavy vaginal bleeding COMPARISON: CT CT ABDOMEN PELVIS WO CON from 03/30/2021 FINDINGS: Transvaginal sonographic images of the pelvis were obtained. UTERUS: 9.6 cm x 8.0cmx 5.4cm anteverted with a combined endometrial thickness of 19.8mm. There is fluid within the cervix. A scar is seen. There appears to be a polyp within the endometrium at the fundus measuring 1.9 cm x 1.4 cm. There is fluid at the fundus of the uterus. There is a posterior fibroid measuring 1.5 cm x 1.4 cm x 1.6 cm There is a larger anterior fibroid measuring 3.6 cm x 2.2 cm x 3.0 cm. LEFT OVARY: 3.2cmx 1.8 cmx2.2cm with a volume of 6.8ml. RIGHT OVARY: 2.1cmx 2.2cmx2.5cm with a volume of 6ml. There is a follicle measuring 1.4 cm x 1.2 cm x 1.7 cm. Both ovaries are seen and appear normal. Doppler flow to both ovaries are seen. There is no fluid in the cul-de-sac. IMPRESSION: 1. Anteverted, bulky uterus. The endometrium is thickened and within the endometrium is a polyp that measures 1.9 cm x 1.4 cm. This polyp likely accounts for the thickness of the endometrium. There is fluid at the fundus of the uterus within the uterine cavity. There are at least 2 fibroids seen. There is a smaller fibroid posteriorly measuring 1.6 cm and a larger anterior fibroid measuring 3.6 cm. Both fibroids are intramural. 2. Both ovaries are seen and appear normal. There is a follicle in the right ovary measuring 1.7 cm. 3. No fluid in the cul-de-sac. Dictated by: Diego Hernández MD 11/06/2024 16:45 Diego Hernández MD in OV 11/06/2024 16:45
== END 2024-11-06 23:59 | disposition home or self-care (01) ==
LOC: RAD 15:39
PROVIDERS: PCP Nurse Practitioner; Visit Provider Nurse Practitioner Obstetrics & Gynecology
DX: D25.1 Intramural leiomyoma of uterus (principal); N84.0 Polyp of corpus uteri; N83.01 Follicular cyst of right ovary; R93.89 Abnormal findings on diagnostic imaging of other specified body structures
CPT/HCPCS: 76830

== ENCOUNTER 2024-12-13 10:13 | Outpatient (CLI) | payer BC, SELFPAY ==
--- OUTSIDE RECORDS SUMMARY | 2024-12-13 10:17 | XMS_ITS | Clinical Summary ---
Author Organization [facility] Address [address] [place] [address] Care Team Providers Care Surveillance Agent Name Role Phone Zander Bonilla MD Primary Care Provider [phone] Allergies Active Allergy Reactions Criticality Noted Date [...] TEST 2021 FIT Testing (1 year) 2021 INFLUENZA VACCINE 10/18/2024 Pneumococcal Vaccine 0-49 Aged Out No longer eligible based on patient's age to complete this topic Insurance [employer] EM[employer]OYEE Care Teams Surveillance Agent Relationship Specialty Start Date End Date Zander Bonilla MD [address] [place] [address] PCP - General Family Medicine 05/09/16
[2024-12-13 10:43] LABS: Hematocrit 36.4 % (37.0-47.0); Hemoglobin 11.9 g/dL (12.2-16.2); Immature Granulocytes % 0.6 %; Mean Corpuscular HGB Conc 32.7 g/dL (31.8-35.4); Mean Corpuscular Hemoglobin 29.0 pg (27.0-31.2); Mean Corpuscular Volume 88.6 fl (81-99); Nucleated Red Blood Cells % 0 %; Platelet Count 398 K/mm3 (142-424); Red Blood Count 4.11 M/mm3 (4.20-5.40); Red Cell Distribution Width-SD 42.1 fL; White Blood Count 5.4 K/mm3 (4.8-10.8)
[2024-12-13 10:46] LABS: Chloride 101 mmol/L (98-107)
[2024-12-13 10:47] LABS: Albumin Level 4.2 g/dl (3.5-5.0); Potassium 4.3 mmoL/L (3.5-5.1); Sodium 137 mmol/L (136-145)
[2024-12-13 10:49] LABS: Alanine Aminotransferase 10 U/L (12-78); Blood Urea Nitrogen 13 mg/dl (7-17); Creatinine,Serum 0.60 mg/dl (0.52-1.04); Estimated Glomerular Filt Rate 107 ml/min (>60); GFR (African American) 130 ML/MIN (>60)
[2024-12-13 10:50] LABS: Albumin/Globulin Ratio 1.6 (1.1-1.8); Alkaline Phosphatase 62 U/L (38-126); Anion Gap 10.3 mEq/L (5-15); Aspartate Amino Transferase 26 U/L (14-36); Bilirubin,Total 0.9 mg/dl (0.2-1.3); Calcium 9.4 mg/dl (8.4-10.2); Carbon Dioxide 30 mmol/L (22.0-30.0); Globulin 2.7 g/dL (1.3-3.2); Glucose 89 mg/dl (74-100); Total Protein,Serum 6.9 g/dl (6.3-8.2)
[2024-12-13 11:35] LABS: HCG Qualitative, Serum Negative (Negative)
== END 2024-12-13 23:59 | disposition home or self-care (01) ==
LOC: PREOP 10:14
PROVIDERS: Obstetrics & Gynecology; PCP Nurse Practitioner; Visit Provider Nurse Practitioner Obstetrics & Gynecology
DX: Z01.812 Encounter for preprocedural laboratory examination (principal)
CPT/HCPCS: 80053; 84703; 85025

== ENCOUNTER 2024-12-19 06:54 | Day surgery (SDC) | payer BC, SELFPAY ==
[2024-12-13 10:34] VITALS: BMI 23.6
[2024-12-19] VITALS (11 sets, daily range): BP systolic 112–132; BP diastolic 56–89; PULSE 72–95; RESP 16–20; TEMP 36.1–37.2; O2SAT 98–100
[2024-12-19] MEDS: LACTATED RINGERS 1000ML 1,000 ML 25 ML IV (07:21)
--- NOTE | 2024-12-19 07:44 | EXP.ANES.CKL ---
[facility] Disclaimer: The information contained in this section may have been updated after the patient was seen, as this information can be updated by other users. Medical History Urinary tract infection Kidney stone Palpitations Abnormality of right breast on screening mammogram Surgical History Hx of lithotripsy History of augmentation of left breast Hx of section Family History Other Family history of acute congestive heart failure Family history of cancer Family history of diabetes mellitus type II Social History Smoking Status: Never smoker alcohol intake: current alcohol intake frequency: holidays/special occasions only substance use type: denies use current occupational status: other Travel in the last 8 weeks?: None household members: spouse and family housing: house Have you lived/traveled outside US in past 30 days?: No Contact w/someone who lives/traveled outside US past 30 days?: No Exposure to someone with infectious disease in past 14 days?: No Do you have a fever (greater than 100.4 F or 38 C)?: No Have you tested positive for COVID-19?: No Exposed to someone with COVID-19 in past 14 days?: No Do you have a sore throat?: No Do you have a cough?: No Do you have any weakness?: No Do you have any diarrhea?: No Are you experiencing any unusual bleeding?: No Do you have any muscle aches/pain?: No Do you have any abdominal pain?: No Are you experiencing loss of taste or smell?: No [facility] Anesthesia Checklist Patient Identification Patient Identification: Arm Band and Verbal (Name & ) Structural Data Admitted From: Home Planned Operative Procedure/s: D&C Consent for Planned Operative Procedure(s) Verified: Yes Verified Documents: Surgical Consent and History and Physical NPO Status Verified Time NPO: 00:00 Additional verifications Anesthesia Reactions: No Hx Blood Transfusions: No Blood Transfusion Reaction: No Airway Assessment Mallampati Score:: Class II Dentition: Good Dentition Neurological Assessment Level of Consciousness: Awake, Alert and Appropriate Anesthesia Plan Anesthesia Risk discussed: Yes Anesthesia Plan: Verified ASA Class: II Anesthesia Type: General
[2024-12-19] MEDS: CLINDAMYCIN PHOSPHATE/D5W 900 MG/50 ML PIGGYBACK 100 MG IV (08:50)
[2024-12-19] MEDS: SODIUM CHLORIDE IRRIG SOLUTION 3,000 ML 25 ML IR (08:50)
--- NOTE | 2024-12-19 09:24 | P.PNANES_ITS ---
[facility] Anesthesia Record Part I Anesthesia Record I Intake, IV Amount: 800 Hydration: Adequate Estimated blood loss (mL): 50 Urine output (mL): 0 Blood Products used (#): none Blood Pressure: 132/89 SaO2: 100 Pulse Rate: 83 Airway Patency: Patent Respiratory Rate: 16 Temperature: 99 F Patient is:: Drowsy and Stable Stable to PACU at:: 09:20
--- NOTE | 2024-12-19 09:27 | EXP.OP.NOTE ---
Date of procedure: 12/19/24 Pre-op Diagnosis:: Menorrhagia, endometrial polyp Post-op Diagnosis:: Menorrhagia, endometrial polyp Procedure performed:: Hysteroscopy, dilation and curettage, MyoSure polypectomy, NovaSure Surgeon:: Diego Hernández MD SUPERVISOR SCREEN PRINTING:: Dorian Lei Anesthesia: LMA Estimated blood loss (mL): 50 Clinical Note:: She is a 48-year-old lady who complains of extremely heavy periods. An ultrasound showed that she had a 1.7 cm polyp within the endometrial cavity. She also has a couple of small intramural fibroids within the uterus as well. After having discussed the risks and benefits she elected for a hysteroscopy, polypectomy and NovaSure ablation Operative findings:: She had an anteverted uterus that sounded to 11 cm. Within the endometrial cavity there was a polyp on the right side of the uterus near the cornua. It was approximately 2 cm in size. The rest of the endometrial cavity appeared normal Operative note:: She was taken to the operating room where LMA anesthesia was found be adequate. She was prepped and draped in the normal sterile fashion in the lithotomy position. A weighted speculum was placed in the vagina and the anterior lip of the cervix was grasped with a tenaculum. The cervix was then dilated to approximately 6 mm. I then inserted a MyoSure scope into the uterine cavity and the findings were as previously dictated. Using the MyoSure device I then shaved off the polyp within the endometrial cavity. I then performed a gentle curettage with a medium curette. I then sounded the uterus and determine the length of the uterus. I then inserted the NovaSure device and determine the width of the endometrial cavity. The cavity length was 6.5 cm and the width was 4.7 cm. This was placed into the NovaSure device. I then ran the device through its program. I further inspected the endometrial cavity and was found to be completely charred. I then injected 30 cc of 0.5% ropivacaine at the 3:00, 5:00, 7:00, and 9:00 positions of the cervix. She tolerated procedure well and was taken to the recovery room in excellent condition. All sponge and instrument counts were correct. The estimated blood loss was less than 50 cc. Condition: stable Disposition: PACU Specimens:: Endometrial curettings and endometrial polyp Complications:: None
[2024-12-19] MEDS: HYDROMORPHONE 2MG/ML SYRINGE 0.5 MG IV (09:41)
--- NOTE | 2024-12-19 10:05 | SUR.PHASEII ---
called clinic pharmacy to notify them pt is in post op and they can bring meds when available. they stated they had the order and are working on them
--- NOTE | 2024-12-19 10:50 | SUR.PHASEII ---
updated pt we are waiting on clinic pharmacy to bring meds
--- NOTE | 2024-12-19 11:13 | SUR.PHASEII ---
called pharmacy to check on meds. they stated they were ready and would be up shortly with meds.
--- NOTE | 2024-12-19 12:03 | P.PNANES_ITS ---
[facility] Anesthesia Record Part II Anesthesia Record Part II Discharge Time: 10:00 Destination: Surgical Day Care (OP Surgery) PACU nurse assessment reviewed?: Yes Patient Condition:: Good Anesthesia Complications:: None Swallowing reflex intact?: Yes Airway Patency: Patent Cyanosis?: No Blood Pressure: 126/68 SaO2: 100 Respiratory Rate: 18 Pulse Rate: 86 Temperature: 97 F Mental Status: Alert & Oriented Pain level:: 5 Nausea and/or vomitting:: None Intake, IV Amount: 0 Hydration: Adequate
== END 2024-12-19 11:20 | disposition home or self-care (01) ==
PROVIDERS: PCP Nurse Practitioner; Visit Provider Nurse Practitioner Obstetrics & Gynecology
PROC: (CPT 58558; principal; 2024-12-19 08:30)
DX: N84.0 Polyp of corpus uteri (principal); D25.1 Intramural leiomyoma of uterus; N93.9 Abnormal uterine and vaginal bleeding, unspecified; N92.0 Excessive and frequent menstruation with regular cycle; Z88.0 Allergy status to penicillin; Z88.2 Allergy status to sulfonamides
CPT/HCPCS: 58558; 96374; J0736; J1100; J1171; J2003; J2250; J2405; J2704; J2795; J3010; J7120

== ENCOUNTER 2025-03-17 11:45 | Outpatient (CLI) | payer BC, SELFPAY ==
--- OUTSIDE RECORDS SUMMARY | 2025-03-17 11:49 | XMS_ITS | Clinical Summary ---
Author Organization [facility] Address [address] [place] [address] Care Team Providers Care Technical Professional Name Role Phone Zander Bonilla MD Primary Care Provider [phone] Allergies Active Allergy Reactions Criticality Noted Date [...] patient's age to complete this topic Insurance [employer] Care Teams Technical Professional Relationship Specialty Start Date End Date Zander Bonilla MD [address] [place] [address] PCP - General Family Medicine 05/09/16
[2025-03-17 13:36] LABS: Free Thyroxine Index 2.2 ug/dL (5.93-13.13); T4 (Thyroxine) 6.8 ug/dl (5.53-11.0); Triiodothryronine (T3) Uptake 33 % (23.5-40.5)
[2025-03-17 13:50] LABS: Thyroid Stimulating Hormone 0.23 uIU/mL (0.465-4.68)
== END 2025-03-17 23:59 | disposition home or self-care (01) ==
LOC: LAB 11:45
PROVIDERS: PCP Nurse Practitioner; Visit Provider Nurse Practitioner
DX: R00.0 Tachycardia, unspecified (principal); R00.2 Palpitations; R79.89 Other specified abnormal findings of blood chemistry
CPT/HCPCS: 36415; 84436; 84443; 84479; 93270

== ENCOUNTER 2025-03-19 11:49 | Outpatient (CLI) | payer BC, SELFPAY ==
--- OUTSIDE RECORDS SUMMARY | 2025-03-19 11:54 | XMS_ITS | Clinical Summary ---
Author Organization [facility] Address [address] [place] [address] Care Team Providers Care Newborn Photographer Name Role Phone Zander Bonilla MD Primary Care Provider [phone] Allergies Active Allergy Reactions Criticality Noted Date [...] patient's age to complete this topic Insurance [employer] EM[employer] Care Teams Newborn Photographer Relationship Specialty Start Date End Date Zander Bonilla MD [address] [place] [address] PCP - General Family Medicine 05/09/16
[2025-03-19 13:08] LABS: Free T4 (Free Thyroxine) 0.82 ng/dl (0.78-2.19)
[2025-03-19 13:21] LABS: Thyroid Stimulating Hormone 0.31 uIU/mL (0.465-4.68)
== END 2025-03-19 23:59 | disposition home or self-care (01) ==
LOC: LAB 11:49
PROVIDERS: PCP Nurse Practitioner; Visit Provider Student in an Organized Health Care Education/Training Program
DX: R79.89 Other specified abnormal findings of blood chemistry (principal)
CPT/HCPCS: 36415; 83520; 84439; 84443; 86376